=== PATIENT | female | born 1990 | race Caucasian/White ===

== ENCOUNTER 2023-12-03 07:42 | Outpatient (OUT) | payer OTHER, SELFPAY ==
--- NOTE | 2023-12-03 07:44 | MM_ITS ---
Patient Name: ANITHA DUENAS MR#: [id number] : 1990 Exam Date: 12/03/2023 Ordering Doctor: DR Jj Jones . RADIOLOGY REPORT PROCEDURE: MM TOMOSYNTHESIS DIAGNOSTIC BI, 12/03/2023, 07:43 US BREAST LT LIMITED, 12/03/2023, 08:08 COMPARISON: MG MAMM DIAGNOSTIC 3D AVERY CAD, 11/26/2021. MG MAMM AVERY DIAG W CAD, 12/03/2017. INDICATIONS: Screening Calculator Name NCI Breast Cancer Risk Assessment Tool 5 Year Breast Cancer Risk Not Applicable. Lifetime Breast Cancer Risk Not Applicable. Personal Breast Cancer No Personal Ovarian Cancer No Treatments None Family Cancers Aunt-paternal with breast cancer at age ~50; Grandmother-paternal with throat cancer at age 88. LOCATION: The [facility] BREAST COMPOSITION: The breasts are extremely dense, which lowers the sensitivity of mammography. FINDINGS: DIAGNOSTIC CATEGORY 2--BENIGN FINDING: RIGHT BREAST: No significant suspicious finding. No significant change has occurred. LEFT BREAST: No significant suspicious finding via mammography and during breast ultrasound. A skin surface marker localizes the palpable lump to the upper-outer quadrant, mid breast. Annual screening mammography is recommended. If patient notices a palpable change additional evaluation should be performed at that time. RECOMMENDATIONS: ROUTINE MAMMOGRAM AND CLINICAL EVALUATION IN 12 MONTHS. PLEASE NOTE: A NORMAL MAMMOGRAM DOES NOT EXCLUDE THE POSSIBILITY OF BREAST CANCER. A CLINICALLY SUSPICIOUS PALPABLE LUMP SHOULD BE BIOPSIED. Dictated by: Balwinder Waters M.D. on 12/03/2023 at 08:37 Approved by: Balwinder Waters M.D. on 12/03/2023 at 09:16
--- NOTE | 2023-12-03 08:04 | US_ITS ---
Patient Name: ANITHA DUENAS MR#: [id number] : 1990 Exam Date: 12/03/2023 Ordering Doctor: DR Jj Jones . RADIOLOGY REPORT PROCEDURE: MM TOMOSYNTHESIS DIAGNOSTIC BI, 12/03/2023, 07:43 US BREAST LT LIMITED, 12/03/2023, 08:08 COMPARISON: MG MAMM DIAGNOSTIC 3D AVERY CAD, 11/26/2021. MG MAMM AVERY DIAG W CAD, 12/03/2017. INDICATIONS: Screening Calculator Name NCI Breast Cancer Risk Assessment Tool 5 Year Breast Cancer Risk Not Applicable. Lifetime Breast Cancer Risk Not Applicable. Personal Breast Cancer No Personal Ovarian Cancer No Treatments None Family Cancers Aunt-paternal with breast cancer at age ~50; Grandmother-paternal with throat cancer at age 88. LOCATION: The [facility] BREAST COMPOSITION: The breasts are extremely dense, which lowers the sensitivity of mammography. FINDINGS: DIAGNOSTIC CATEGORY 2--BENIGN FINDING: RIGHT BREAST: No significant suspicious finding. No significant change has occurred. LEFT BREAST: No significant suspicious finding via mammography and during breast ultrasound. A skin surface marker localizes the palpable lump to the upper-outer quadrant, mid breast. Annual screening mammography is recommended. If patient notices a palpable change additional evaluation should be performed at that time. RECOMMENDATIONS: ROUTINE MAMMOGRAM AND CLINICAL EVALUATION IN 12 MONTHS. PLEASE NOTE: A NORMAL MAMMOGRAM DOES NOT EXCLUDE THE POSSIBILITY OF BREAST CANCER. A CLINICALLY SUSPICIOUS PALPABLE LUMP SHOULD BE BIOPSIED. Dictated by: Balwinder Waters M.D. on 12/03/2023 at 08:37 Approved by: Balwinder Waters M.D. on 12/03/2023 at 09:16
== END 2023-12-03 07:43 | disposition home or self-care (01) ==
LOC: MAMMO 07:42
PROVIDERS: Visit Provider Obstetrics & Gynecology
DX: N63.21 Unspecified lump in the left breast, upper outer quadrant (principal); R92.8 Other abnormal and inconclusive findings on diagnostic imaging of breast; Z80.3 Family history of malignant neoplasm of breast; Z80.8 Family history of malignant neoplasm of other organs or systems
CPT/HCPCS: 76642; 77066; G0279

== ENCOUNTER 2024-08-17 15:03 | Outpatient (REF) | payer OTHER, SELFPAY ==
--- OUTSIDE RECORDS SUMMARY | 2024-08-17 09:00 | XMS_ITS | Encounter Summary ---
Author Organization [facility] Address [address] [place] [address] Care Team Providers Care Polymerization Oven Tender Name Role Phone Chrystal Page MD Primary Care Provider [phone] Haleigh Maldonado DIRECTOR OF MOBILE MARKETING Unavailable [phone] Reason for Visit * Reason Comments Well Women Visit Encounter Details Date Type Department Care Team (Late st Contact Info) Description 08/17/2024 9:00 AM EDT Office Visit [facility] [address] [place] [id number] Tatyana Moreno PA [address] [place], [place] [address] Well woman exam with routine gynecological exam Social History Tobacco Use Types Packs/Day Years Used Date Smoking Tobacco: Never Passive Smoke Exposure: Never Smokeless Tobacco: Never Alcohol Use Standard Drinks/Week Comments Never 0 (1 standard drink = 0.6 oz pur e alcohol) PHQ-2 Answer Date Recorded Patient Health Questionnaire-2 Score 0 09/20/2023 Comments No Sex and Gender Information Value Date Recorded Sex Assigned at Not on file Legal Sex Female 11:48 PM EDT Gender Identity Not on file Sexual Orientation Not on file documented as of this encounter Last Filed Vital Signs Vital Sign Reading Time Taken Comments Blood Pressure 112/70 08/17/2024 9:08 AM EDT Pulse - - Temperature - - Respiratory Rate - - Oxygen Saturation - - Inhaled Oxygen Concentration - - Weight 54 kg (119 lb) 08/17/2024 9:08 AM EDT Height - - Body Mass Index 21.77 11/17/2023 3:02 PM EDT documented in this encounter Progress Notes * AMY Benavidez - 08/17/2024 9:00 AM EDT Reason for Appointment: Patient ID: Heather Pacheco is a 33 y.o. female who presents for Well Women Visit Patient presents today for Annual Exam. MEDICATIONS No current outpatient medications ALLERGIES Allergies Allergen Reactions Ibuprofen GI intolerance Other Reaction(s): GI Disturbance tolerance PROBLEMS Active Ambulatory Problems Diagnosis Date Noted SVT (supraventricular tachycardia) ([facility] 09/20/2023 Resolved Ambulatory Problems Diagnosis Date Noted No Resolved Ambulatory Problems Past Medical History: Diagnosis Date Abnormal ECG Fibrocystic breast HISTORY PAST MEDICAL HISTORY SOCIAL HISTORY Past Medical History: Diagnosis Date Abnormal ECG Fibrocystic breast Social History Tobacco Use Smoking status: Never Passive exposure: Never Smokeless tobacco: Never Vaping Use Vaping status: Never Used Substance Use Topics Alcohol use: Never Drug use: Never FAMILY HISTORY Family History Problem Relation Name Age of Onset Hyperlipidemia Mother Radha Hyperlipidemia Father Jeffrey No Known Problems Sister No Known Problems Brother Melanoma Mother's Brother Throat cancer Paternal Grandmother Hyperlipidemia Paternal Grandfather Darl Hypertension Paternal Grandfather Darl Heart disease Paternal Grandfather Darl Thyroid disease Maternal Grandmother Shauna SURGICAL HISTORY Past Surgical History: Procedure Laterality Date EXCISION / BIOPSY BREAST / NIPPLE / DUCT Left TONSILLECTOMY WISDOM TOOTH EXTRACTION REVIEW OF SYSTEMS Review of Systems: Review of Systems Constitutional: Negative. HENT: Negative. Eyes: Negative. Respiratory: Negative. Cardiovascular: Negative. Gastrointestinal: Negative. Genitourinary: Negative. Musculoskeletal: Negative. Skin: Negative. Neurological: Negative. All other systems reviewed and are negative. Hematological: Negative. Endocrine: Negative. Allergic/Immunologic: Negative. OBJECTIVE Objective: Physical Exam Constitutional: Appearance: Normal appearance. She is well-developed. Genitourinary: Vulva normal. Right Adnexa: not tender and no mass present. Left Adnexa: not tender and no mass present. No cervical discharge. Breasts: Breasts are soft. Right: Normal. Left: Normal. HENT: Head: Normocephalic. Nose: Nose normal. Mouth/Throat: Mouth: Mucous membranes are moist. Cardiovascular: Rate and Rhythm: Normal rate and regular rhythm. Pulmonary: Effort: Pulmonary effort is normal. Breath sounds: Normal breath sounds. Abdominal: General: Bowel sounds are normal. There is no distension. Palpations: Abdomen is soft. Tenderness: There is no abdominal tenderness. There is no guarding or rebound. Musculoskeletal: General: No swelling. Normal range of motion. Cervical back: Normal range of motion. Right lower leg: No edema. Left lower leg: No edema. Neurological: General: No focal deficit present. Mental Status: She is alert and oriented to person, place, and time. Skin: General: Skin is warm and dry. Psychiatric: Mood and Affect: Mood normal. Behavior: Behavior normal. Vitals and nursing note reviewed. Exam conducted with a meat seafood associate present. Vitals: Estimated body mass index is 21.77 kg/m?? as calculated from the following: Height as of 24: 5' 2 . Weight as of this encounter: 119 lb. BP: 112/70 No LMP recorded. ASSESSMENT & PLAN ICD-10-CM 1. Well woman exam with routine gynecological exam Z01.419 Pap Smear HPV DNA probe, amplified Annual Exam: Patient presents today for an annual exam. Patient states she is doing well and has no complaints. Pap was obtained without difficulty. Patient has history of fiber cystic palpable lump on breast. Had a mammogram done on 12/03/2023 andcame back benign findings, however if patient notices a palpable change to have a diagnostic mammogram preformed. Tatyana Moreno seen the mammogram results and advised patient as she did her breast exam she did not feel anything abnormal, however if she does in the future to call office and we can orderher a Diagnostic Mammogram of the breast(s). PVU Orders Placed This Encounter Procedures HPV DNA probe, amplified Follow Up: Patient is to return in one year for annual unless needed otherwise. Documented by Edelmira Moreira MA on behalf of: AMY Benavidez documented in this encounter Plan of Treatment Upcoming Encounters Date Type Department Care Team (Late st Contact Info) Description 09/18/2024 1:00 PM EDT Office Visit [facility] [address] [place] [address] Haleigh Maldonado NP [address] [place], [place] [id number] Scheduled Orders Name Type Priority Associated Diagnoses Orde r Schedule Pap Smear Pathology and Cytology Routine Well woman exam with routine gynecological exam Ordered: 08/17/2024 HPV DNA probe, amplified Microbiology Routine Well woman exam with routine gynecological exam Ordered: 08/17/2024 documented as of this encounter Visit Diagnoses Diagnosis Well woman exam with routine gynecological exam Routine gynecological examination documented in this encounter Care Teams Polymerization Oven Tender Relationship Specialty Start Date End Date Chrystal Page MD PCP - General Family Medicine 09/21/23 Haleigh Maldonado NP [address] [place] [address] Nurse Practitioner Family Medicine 09/21/23 documented as of this encounter
--- OUTSIDE RECORDS SUMMARY | 2024-08-17 15:11 | XMS_ITS | Clinical Summary ---
Author Organization [facility] Address [address] [place] [address] Care Team Providers Care Coach Operator Name Role Phone Chrystal Page MD Primary Care Provider [phone] Haleigh Maldonado DISSOLVER OPERATOR Unavailable [phone] Allergies Active Allergy Reactions Criticality Noted Date Comments Ibuprofen GI intolerance 08/29/2018 Other Reaction(s): GI Disturbance tolerance Medications No known medications Active Problems Problem Noted Date Diagnosed Date SVT (supraventricular tachycardia) 09/20/2023 Encounters Date Type Department Care Team Description 08/17/2024 9:00 AM EDT [facility] [address] [facility] [place] [address] Tatyana Moreno PA Well woman exam with routine gynecological exam 08/17/2024 Bamboo flowsheet [facility] [address] [facility] [place] [address] Tatyana Moreno PA 08/16/2024 Travel from Last 3 Months Family History Medical History Relation Name Comments No Known Problems Brother Hyperlipidemia Father Jeffrey Thyroid disease Maternal Grandmother Shauna Hyperlipidemia Mother Radha Melanoma Mother's Brother Heart disease Paternal Grandfather Darl Hyperlipidemia Paternal Grandfather Darl Hypertension Paternal Grandfather Darl Throat cancer Paternal Grandmother No Known Problems Sister Relation Name Status Comments Brother x 1 Father Jeffrey Maternal Grandmother Shauna Mother Radha Mother's Brother Paternal Grandfather Darl Paternal Grandmother Sister x 1 Social History Tobacco Use Types Packs/Day Years Used Date Smoking Tobacco: Never Passive Smoke Exposure: Never Smokeless Tobacco: Never Tobacco Cessation:Counseling Given: Not Answered Alcohol Use Standard Drinks/Week Comments Never 0 (1 standard drink = 0.6 oz pur e alcohol) PHQ-2 Answer Date Recorded Patient Health Questionnaire-2 Score 0 09/20/2023 Comments No Sex and Gender Information Value Date Recorded Sex Assigned at Not on file Legal Sex Female 11:48 PM EDT Gender Identity Not on file Sexual Orientation Not on file Last Filed Vital Signs Vital Sign Reading Time Taken Comments Blood Pressure 112/70 08/17/2024 9:08 AM EDT Pulse 72 09/20/2023 8:18 AM EDT Temperature - - Respiratory Rate - - Oxygen Saturation - - Inhaled Oxygen Concentration - - Weight 54 kg (119 lb) 08/17/2024 9:08 AM EDT Height 157.5 cm (5' 2 ) 11/17/2023 3:02 PM EDT Body Mass Index 21.77 11/17/2023 3:02 PM EDT Plan of Treatment Upcoming Encounters Date Type Department Care Team (Late st Contact Info) Description 09/18/2024 1:00 PM EDT Office Visit [facility] [address] [place] [address] Haleigh Maldonado NP [address] [place] [address] [facility] Care Teams Coach Operator Relationship Specialty Start Date End Date Kaylee, Chrystal Harris MD PCP - General Family Medicine 09/21/23 Haleigh Maldonado NP [address] [place] [address] Nurse Practitioner Family Medicine 09/21/23
--- OUTSIDE RECORDS SUMMARY | 2024-08-17 15:11 | XMS_ITS | Encounter Summary ---
Author Organization [facility] Address [address] [place] [address] Care Team Providers Care Safety Instructor Name Role Phone Chrystal Page MD Primary Care Provider [phone] Haleigh Maldonado HEALTH MANAGEMENT CONSULTANT Unavailable [phone] Encounter Details Date Type Department Care Team (Latest Contact Info) Description 08/16/2024 Travel Social History Tobacco Use Types Packs/Day Years [...] on file documented as of this encounter Plan of Treatment Upcoming Encounters Date Type Department Care Team (Late st Contact Info) Description 09/18/2024 1:00 PM EDT Office Visit [facility] [address] [place] [address] Haleigh Maldonado NP [address] [place] [address] documented as of this encounter Visit Diagnoses Not on filedocumented in this encounter Care Teams Safety Instructor Relationship Specialty Start Date End Date Chrystal Page MD PCP - General Family Medicine 09/21/23 Haleigh Maldonado NP [address] [place] [address] Nurse Practitioner Family Medicine 09/21/23 documented as of this encounter
--- OUTSIDE RECORDS SUMMARY | 2024-08-17 15:11 | XMS_ITS | Encounter Summary ---
Author Organization [facility] Address [address] [facility] [place] [address] Care Team Providers Care Tower Hoist Operator Name Role Phone Chrystal Page MD Primary Care Provider [phone] Haleigh Maldonado FINISHER HAND Unavailable [phone] Encounter Details Date Type Department Care Team (Late st Contact Info) Description 12/03/2023 Clinisync Result Encounter [facility] External Department Unsolicited Jj Jones, DO [address] [place] [address] Social History Tobacco Use Types Packs/Day Years [...] EDT Office Visit [facility] [address] [place] [address] Haleigh Maldonado NP [address] [place] [address] documented as of this encounter Procedures Procedure Name Priority Date/Time Associated Diagnosis Comments US BREAST LT LIMITED 12/03/2023 9:16 AM EDT documented in this encounter Results * US BREAST LT LIMITED (12/03/2023 9:16 AM EDT) Anatomical Region Laterality Modality Other 12/03/2023 9:16 AM EDT Narrative 12/03/2023 9:17 [place] [address] Ultrasound Report Signed Patient: HEATHER PACHECO MR#: [id number] : 1990 Acct:[id number] Age/Sex: 33 / F ADM Date: 12/03/23 Loc: MAMMO Attending Dr: Jj Jones D.O. Ordering Physician: Jj Jones D.O. Date of Service: 12/03/23 Procedure(s): US breast LT limited Accession Number(s): [id number] cc: Jj Jones D.O.; Physician,Non-Staff Jarad Patient Name: HEATHER PACHECO MR#: [id number] : 1990 Exam Date: 12/03/2023 Ordering Doctor: DR Jj Jones . RADIOLOGY REPORT PROCEDURE: MM TOMOSYNTHESIS DIAGNOSTIC BI, 12/03/2023, 07:43 US BREAST LT LIMITED, 12/03/2023, 08:08 COMPARISON: MG MAMM DIAGNOSTIC 3D AVERY CAD, 11/26/2021. MG MAMM AVERY DIAG W CAD, 12/03/2017. INDICATIONS: Screening Calculator Name NCI Breast Cancer Risk Assessment Tool 5 Year Breast Cancer Risk Not Applicable. Lifetime Breast Cancer Risk Not Applicable. Personal Breast Cancer No Personal Ovarian Cancer No Treatments None Family Cancers Aunt-paternal with breast cancer at age 50; Grandmother-paternal with throat cancer at age 88. LOCATION: The [facility] BREAST COMPOSITION: The breasts are extremely dense, which lowers the sensitivity of mammography. FINDINGS: DIAGNOSTIC CATEGORY 2--BENIGN FINDING: RIGHT BREAST: No significant suspicious finding. No significant change has occurred. LEFT BREAST: No significant suspicious finding via mammography and during breast ultrasound. A skin surface marker localizes the palpable lump to the upper-outer quadrant, mid breast. Annual screening mammography is recommended. If patient notices a palpable change additional evaluation should be performed at that time. RECOMMENDATIONS: ROUTINE MAMMOGRAM AND CLINICAL EVALUATION IN 12 MONTHS. PLEASE NOTE: A NORMAL MAMMOGRAM DOES NOT EXCLUDE THE POSSIBILITY OF BREAST CANCER. A CLINICALLY SUSPICIOUS PALPABLE LUMP SHOULD BE BIOPSIED. Dictated by: Balwinder Waters M.D. on 12/03/2023 at 08:37 Approved by: Balwinder Waters M.D. on 12/03/2023 at 09:16 Dictated By: Balwinder Waters M.D. Signed By: 12/03/23916 DD/ 5 TD/TT: Community Recreation Coordinator: Procedure Note Radiology, Radiologist, MD - 12/03/2023 [place] [address] Ultrasound Report Signed Patient: HEATHER PACHECO MMR#: [id number] : 1990Acct:[id number] Age/Sex: 33 / FADM Date: 12/03/23 Loc: MAMMO Attending Dr: Jj Jones D.O. Ordering Physician: Jj Jones D.O. Date of Service: 12/03/23 Procedure(s): US breast LT limited Accession Number(s): [id number] cc: Jj Jones D.O.; Physician,Non-Staff Jarad Patient Name: HEATHER PACHECO MR#: [id number] : 1990 Exam Date: 12/03/2023 Ordering Doctor: DR Jj Jones . RADIOLOGY REPORT PROCEDURE: MM TOMOSYNTHESIS DIAGNOSTIC BI, 12/03/2023, 07:43 US BREAST LT LIMITED, 12/03/2023, 08:08 COMPARISON: MG MAMM DIAGNOSTIC 3D AVERY CAD, 11/26/2021. MG MAMM BILDIAG W CAD, 12/03/2017. INDICATIONS: Screening Calculator Name NCI Breast Cancer Risk Assessment Tool 5 Year Breast Cancer Risk Not Applicable. Lifetime Breast Cancer Risk Not Applicable. Personal Breast Cancer No Personal Ovarian Cancer No Treatments None Family Cancers Aunt-paternal with breast cancer at age 50; Grandmother-paternal with throat cancer at age 88. LOCATION: The [facility] BREAST COMPOSITION: The breasts are extremely dense, which lowers the sensitivity of mammography. FINDINGS: DIAGNOSTIC CATEGORY 2--BENIGN FINDING: RIGHT BREAST: No significant suspicious finding. No significant changehas occurred. LEFT BREAST: No significant suspicious finding via mammography and during breast ultrasound. A skin surface marker localizes the palpable lump tothe upper-outer quadrant, mid breast. Annual screening mammography is recommended. If patient notices a palpable change additional evaluation should be performed at that time. RECOMMENDATIONS: ROUTINE MAMMOGRAM AND CLINICAL EVALUATION IN 12 MONTHS. PLEASE NOTE: A NORMAL MAMMOGRAM DOES NOT EXCLUDE THE POSSIBILITY OFBREAST CANCER. A CLINICALLY SUSPICIOUS PALPABLE LUMP SHOULD BE BIOPSIED. Dictated by: Balwinder Waters M.D. on 12/03/2023 at 08:37 Approved by: Balwinder Waters M.D. on 12/03/2023 at 09:16 Dictated By: Balwinder Waters M.D. Signed By:12/03/23916 DD/ 5 TD/TT: Community Recreation Coordinator: [facility] Final Result documented in this encounter Visit Diagnoses Not on filedocumented in this encounter Care Teams Tower Hoist Operator Relationship Specialty Start Date End Date Kaylee, Chrystal Harris MD PCP - General Family Medicine 09/21/23 Haleigh Maldonado NP [address] [place] [address] Nurse Practitioner Family Medicine 09/21/23 documented as of this encounter
--- OUTSIDE RECORDS SUMMARY | 2024-08-17 15:11 | XMS_ITS | Encounter Summary ---
Author Organization [facility] Address [address] [facility] [place] [address] Care Team Providers Care Retail Sales Lead Name Role Phone Chrystal Page MD Primary Care Provider [phone] Haleigh Maldonado LOADER OPERATOR Unavailable [phone] Encounter Details Date Type Department Care Team (Late st Contact Info) Description 12/03/2023 Clinisync Result Encounter [facility] External Department Unsolicited Jj Jones, DO [address] [facility] [address] [place] [address] Social History Tobacco Use Types Packs/Day Years [...] Office Visit [facility] [address] [place] [address] Haleigh Maldonado NP [address] [place] [address] documented as of this encounter Procedures Procedure Name Priority Date/Time Associated Diagnosis Comments MM TOMOSYNTHESIS DIAGNOSTIC BI 12/03/2023 9:16 AM EDT documented in this encounter Results * MM TOMOSYNTHESIS DIAGNOSTIC BI (12/03/2023 9:16 AM EDT) Anatomical Region Laterality Modality Other 12/03/2023 9:16 AM EDT Narrative 12/03/2023 9:17 [place] [address] Mammography Report Signed Patient: HEATHER PACHECO MR#: [id number] : 1990 Acct:[id number] Age/Sex: 33 / F ADM Date: 12/03/23 Loc: MAMMO Attending Dr: Jj Jones D.O. Ordering Physician: Jj Jones D.O. Results: Date of Service: 12/03/23 Follow Up: Procedure(s): MM tomosynthesis diagnostic BI Accession Number(s): [id number] cc: Jj Jones D.O.; Physician,Non-Staff Jarad Patient Name: HEATHER PACEHCO MR#: [id number] : 1990 Exam Date: 12/03/2023 Ordering Doctor: [...] throat cancer at age 88. LOCATION: The [facility] BREAST COMPOSITION: The breasts are extremely dense, [...] M.D. Signed By: 12/03/23916 DD/ 5 TD/TT: Practice Support Specialist: Procedure Note Radiology, Radiologist, MD - 12/03/2023 [place] [address] Mammography Report Signed Patient: HEATHER PACHECO MMR#: [id number] : 1990Acct:[id number] Age/Sex: 33 / FADM Date: 12/03/23 Loc: MAMMO Attending Dr: Jj Jones D.O. Ordering Physician: Jj Jones D.O.Results: Date of Service: 12/03/23Follow Up: Procedure(s): MM tomosynthesis diagnostic BI Accession Number(s): [id number] cc: Jj Jones D.O.; Physician,Non-Staff Jarad Patient Name: HEATHER PACHECO MR#: [id number] : 1990 Exam Date: 12/03/2023 Ordering Doctor: [...] throat cancer at age 88. LOCATION: [facility] BREAST COMPOSITION: The breasts are extremely dense, [...] Waters M.D. Signed By:12/03/23916 DD/ 5 TD/TT: Practice Support Specialist: [facility] Karen DO [facility] Final Result documented in this encounter Visit Diagnoses Not on filedocumented in this encounter Care Teams Retail Sales Lead Relationship Specialty Start Date End Date Chrystal Page MD PCP - General Family Medicine 09/21/23 Haleigh Maldonado NP [address] [place] [address] Nurse Practitioner Family Medicine 09/21/23 documented as of this encounter
[2024-08-19 15:08] LABS: Age Gdln ACOG Testing Note (.); HPV Aptima Negative (Negative); IGP, Aptima HPV, rfx 16/18,45 Note (.)
== END 2024-08-17 15:04 | disposition home or self-care (01) ==
LOC: LAB 15:03
PROVIDERS: Visit Provider Physician Assistant
DX: Z01.419 Encounter for gynecological examination (general) (routine) without abnormal findings (principal)
CPT/HCPCS: 87624; 88175